=== PATIENT | female | born 1935 | race Two or more races ===

== ENCOUNTER 2017-09-15 11:36 | Emergency (ER) | payer MEDICAID, MEDICARE, OTHER ==
[~2017-09-15] VITALS: Ht 152.4 cm; Wt 40.8 kg
[~2017-09-15 11:36] MED LIST: ALBUTEROL2.5 MG/3 M INH; AMLODIPINE BES2.5 MG ORAL; ATIVAN1 MG ORAL; ATORVASTATIN CA20 MG ORAL; CEFAZOLIN1 GM/50 ML IV; COLACE100 MG ORAL; COUMADIN4 MG ORAL; COUMADIN5 MG ORAL; CRANBERRY450 M4 PO; CYMBALTA20 MG ORAL; DEPAKOTE SPRIN125 MG PO; DEPAKOTE500 MG PO; DIGOXIN125 MCG ORAL; DULCOLAX10 MG RC; DUONEB 0.5-3(2.53 ML HHN; FERROUS SULFAT325 MG ORAL; JUVEN PACKET1 EAC1 PO; LOPRESSOR25 M1 ORAL; METOPROLOL SUCC25 MG ORAL; MILK OF MA400 MG/51 ORAL; MORPHINE 11 MG/1 M3 IVP; MULTIVITAMINS1 EA13 ORAL; MULTIVITAMINS1 EA14 PO; MULTIVITAMINS1 EAC2 ORAL; NAMENDA5 MG ORAL; NORCO 5-325 TA1 EACH ORAL; NOVOLOG100 UNIT/3 SUBQ; OMEPRAZOLE20 M2 ORAL; OMEPRAZOLE20 M3 ORAL; PROTEIN PO; ROCEPHIN 11 GM/50 ML IVPB; TRAMADOL HCL50 MG ORAL; TYLENOL325 MG ORAL; ULTRAM50 MG ORAL; VANCOMYCIN1 GM IV; VANCOMYCIN1 GM/2502 IVPB; VITAMIN C500 M1 ORAL; Warfarin RX monitoring MISC; ZINC SULFATE220 M1 ORAL; ZOFRAN4 M1 ORAL
[2017-09-15 11:50] VITALS: BP 132/92
[2017-09-15] MEDS ORDERED: Sodium Chloride 500ML 500 ML IV ONE (12:02)
[2017-09-15 13:00] VITALS: BP 144/94
[2017-09-15 13:09] LABS: BASOPHILS % (AUTO) 0.8 % (0.0-2.0); EOSINOPHILS % (AUTO) 1.2 % (0.0-3.0); LYMPHOCYTES % (AUTO) 14.3 % (20.0-45.0); MEAN CORPUSCULAR HEMOGLOBIN 25.7 PG (27.0-31.0); MEAN CORPUSCULAR HGB CONC 29.5 G/DL (32.0-36.0); MEAN CORPUSCULAR VOLUME 87 FL (80-99); MEAN PLATELET VOLUME 6.7 FL (6.5-10.1); MONOCYTES % (AUTO) 10.9 % (1.0-10.0); NEUTROPHILS % (AUTO) 72.9 % (45.0-75.0); PLATELET COUNT 169 K/UL (150-450); RED BLOOD COUNT 4.26 M/UL (4.20-5.40); RED CELL DISTRIBUTION WIDTH 17.9 % (11.6-14.8)
[2017-09-15 13:23] LABS: INR 3.2 (0.9-1.1); PROTHROMBIN TIME 34.3 SEC (9.30-11.50)
[2017-09-15 13:40] LABS: ALANINE AMINOTRANSFERASE 11 U/L (12-78); ALBUMIN/GLOBULIN RATIO 0.6 (1.0-2.7); ANION GAP 9 mmol/L (5-15); ASPARTATE AMINO TRANSFERASE 15 U/L (15-37); CALCIUM 8.8 MG/DL (8.5-10.1); CARBON DIOXIDE 27 MMOL/L (21-32); CHLORIDE 106 MMOL/L (98-107); CKMB 1.7 NG/ML (0.0-3.6); CREATININE 0.5 MG/DL (0.55-1.30); POTASSIUM 3.8 MMOL/L (3.5-5.1); SODIUM 142 MMOL/L (136-145); TOTAL PROTEIN 7.4 G/DL (6.4-8.2)
--- NOTE | 2017-09-15 13:54 | Diagnostic Imaging Report ---
Indication: Cough Technique: One view of the chest Comparison: 01/16/2016 Findings: Old healed right humeral fracture deformity is again demonstrated. The bilateral hemidiaphragms are obscured, probably an artifact of projection and positioning but small bilateral pleural effusions cannot be ruled out. The heart is enlarged. The lungs are clear. Aorta is tortuous Impression: Obscured bilateral hemidiaphragms, suspect artifactual but small effusions not excludable Cardiomegaly No acute process otherwise
--- NOTE | 2017-09-15 13:59 | Emergency Room Report ---
History of Present Illness General Chief Complaint: Laceration Source: Medical Record, EMS (RICHMOND CHRISTIANSON M.D.) Present Illness HPI 82-year-old female presents ED for evaluation. Patient brought in because of persistent bleeding from the mouth. Patient comes from [facility]. Patient is on Coumadin. Last INR was greater than 6. Coumadin was withheld for 2 days. Upon arrival patient is altered which is her baseline. No active bleeding at this time. No signs of distress. No other aggravating relieving factors. No other associated symptoms (RICHMOND CHRISTIANSON M.D.) Allergies: Coded Allergies: PENICILLINS (Unverified Allergy, Unknown, 09/15/17) Patient History Past Medical History: DM, HTN, CVA/TIA, seizures, other - dysphagia Past Surgical History: none Pertinent Family History: none Social History: Denies: smoking, alcohol use, drug use Now: No Immunizations: UTD Reviewed Nursing Documentation: PMH: Agreed, PSxH: Agreed (RICHMOND CHRISTIANSON M.D.) Nursing Documentation-PMH Hx Cardiac Problems: Yes - CVA, Hyperlipidemia Hx Hypertension: Yes Hx Diabetes: Yes Hx Cancer: No Hx Gastrointestinal Problems: Yes - Dysphagia Hx Neurological Problems: Yes Hx Cerebrovascular Accident: Yes Hx Dementia: Yes Hx Seizures: Yes Hx Epilepsy: Yes Hx Multiple Sclerosis: Yes (RICHMOND CHRISTIANSON M.D.) Review of Systems All Other Systems: limited (RICHMOND CHRISTIANSON M.D.) Physical Exam Vital Signs Date Time Temp Pulse Resp B/P (MAP) Pulse Ox O2 Delivery O2 Flow Rate FiO2 09/15/17 11:29 110 20 136/80 99 Room Air 09/15/17 11:50 97.3 Sp02 EP Interpretation: reviewed, normal General Appearance: thin, other - encephalopathy Head: normocephalic Eyes: bilateral eye normal inspection, bilateral eye PERRL ENT: hearing grossly normal, no angioedema, normal voice, other - superficial abrasion to roof of mouth. no active bleeding Neck: full range of motion, supple/symm/no masses Respiratory: chest non-tender, lungs clear, normal breath sounds, speaking full sentences Cardiovascular #1: regular rate, rhythm, no edema Gastrointestinal: normal bowel sounds, non tender, soft, non-distended, no guarding, no rebound Rectal: deferred Genitourinary: no CVA tenderness Musculoskeletal: back normal Neurologic: other - encephalopathy Psychiatric: other - encephalopathy Skin: normal inspection Lymphatic: normal inspection (RICHMOND CHRISTIANSON M.D.) Medical Decision Making Diagnostic Impression: Primary Impression: Coagulopathy Additional Impressions: Encephalopathy acute Subacute subdural hematoma ER Course Received signout 82-year-old female coming [facility], COPD,? A. fib on anticoagulation, schizophrenia, dementia, bedbound Initially came in for bleeding mouth No active bleeding emergency room Had a supratherapeutic INR at 6.6 few days ago, Coumadin was held, today's INR is 3.2 EKG noted to have deep T-wave inversions which are new, troponin is negative Patient had head CT performed, subacute subdural left side Keppra, Lamictal, vitamin K 10 mg IV ordered Currently patient is awake, incomprehensible sounds,(reportedly is her baseline) , blood pressure systolic 130 protecting airway, eyes open Patient will be transported to [facility] for higher level of care, signed out patient to Dr Beck who has accepted patient for admission (Nerissa Sanchez M.D.) EKG Diagnostic Results Rate: normal Rhythm: other - afib ST Segments: other - deep twave ivnerions in lateral leads ASA given to the pt in ED: No (RICHMOND CHRISTIANSON M.D.) Rhythm Strip Diag. Results EP Interpretation: yes Rhythm: no PVC's, no ectopy (RICHMOND CHRISTIANSON M.D.) Chest X-Ray Diagnostic Results Chest X-Ray Diagnostic Results : Chest X-Ray Ordered: Yes # of Views/Limited/Complete: 1 View Indication: Shortness of Breath EP Interpretation: Yes Interpretation: no consolidation, no pneumothorax, no acute cardiopulmonary disease, other - bialteral effusion Impression: Other - bilateral effusion Electronically Signed by: Electronically signed by Richmond Christianson MD (RICHMOND CHRISTIANSON M.D.) CT/MRI/US Diagnostic Results CT/MRI/US Diagnostic Results : Imaging Test Ordered: CT Head (RICHMOND CHRISTIANSON M.D.) Last Vital Signs Date Time Temp Pulse Resp B/P (MAP) Pulse Ox O2 Delivery O2 Flow Rate FiO2 09/15/17 11:50 97.3 82 15 132/92 99 Room Air (RICHMOND CHRISTIANSON M.D.) Referrals: RAFY LAND (PCP) RICHMOND CHRISTIANSON M.D. Sep 15, 2017 13:59 Nerissa Sanchez M.D. Sep 15, 2017 14:27
[2017-09-15 14:00] VITALS: BP 144/85
--- NOTE | 2017-09-15 14:21 | Diagnostic Imaging Report ---
Indications: Altered mental Technique: Spiral acquisitions obtained through the brain. Angled axial and coronal 5 x 5 mm slices were reconstructed. Total dose length product 1432 mGycm. CTDI vol(s) 70 mGy. Dose reduction achieved using automated exposure control Comparison: 06/20/2015 Findings: Interim development of a left convexity subdural hematoma, which is isoattenuating with [place] matter. This measures up to 4 mm thick. There is slight mass effect, this is by 6 mm left right midline shift. Note, however, that a component of the midline shift is baseline for this patient, as there were 3 mm of shift noted on the previous CT without a subdural hematoma present. No other evidence of acute intracranial bleed or edema. There is an old right posterior thalamic lacunar infarct again demonstrated. There is a right anterior thalamic lacunar infarct which is old, but not evident on the prior exam. There is also a left thalamic lacunar infarct which was not present previously. There is a right anterior basal ganglia lacunar infarct, equivocally present previously. There is a left posterior temporal deep white matter infarct which is new since prior exam. There is minimal left posterior parasagittal parietal encephalomalacia which was evident previously. There is age-related enlargement of ventricles and extra-axial CSF spaces. There is periventricular deep white matter chronic ischemic change. Intact calvarium. Visualized orbits and sinuses are unremarkable. The mastoids are clear. There is no evidence of significant extracranial scalp soft tissue swelling. Impression: 4 mm thick left convexity subacute subdural hematoma. This results in mild mass effect, as described. No evidence of calvarial fracture Chronic and age-related changes, as described Critical value findings discussed by phone with Dr. Christianson in emergency room at the time of interpretation The CT scanner at [facility] is accredited by the [employer] and the scans are performed using protocols designed to limit radiation exposure to as low as reasonably achievable to attain images of sufficient resolution adequate for diagnostic evaluation.
[2017-09-15] MEDS ORDERED: Phytonadione 10 mg/mL 1ml amp ONE (14:24)
[2017-09-15] MEDS ORDERED: Mannitol 20% IV 500 ML IV ONE (14:30)
[2017-09-15] MEDS ORDERED: levETIRAcetam 1,500 MG in D5W 95 ML IVPB ONE (14:30)
[2017-09-15] MEDS ORDERED: Phytonadione 10 MG in D5W 55 ML IVPB ONE (14:30)
[2017-09-15] MEDS ORDERED: levETIRAcetam 500mg vial IV ONE (14:32)
[2017-09-15 14:41] VITALS: BP 144/85
[2017-09-15 15:11] VITALS: BP 126/78
[2017-09-15 15:30] VITALS: BP 126/78
--- NOTE | 2017-09-15 19:48 | Cardiology Progress Note ---
Assessment/Plan Assessment/Plan The patient is seen and examined, full consult note will be dictated. Objective Last 24 Hour Vital Signs Date Time Temp Pulse Resp B/P (MAP) Pulse Ox O2 Delivery O2 Flow Rate FiO2 09/15/17 15:11 90 16 126/78 99 Room Air 09/15/17 14:41 97 15 144/85 99 Room Air 09/15/17 14:00 101 22 144/85 98 Room Air 09/15/17 13:00 91 20 144/94 99 Room Air 09/15/17 11:50 97.3 82 15 132/92 99 Room Air 09/15/17 11:29 110 20 136/80 99 Room Air Intake and Output 09/15/17 09/16/17 19:00 07:00 Output Total 20 ml Balance -20 ml Output Urine Total 20 ml Laboratory Tests Test 09/15/17 12:35 White Blood Count 6.0 K/UL (4.8-10.8) Red Blood Count 4.26 M/UL (4.20-5.40) Hemoglobin 11.0 G/DL (12.0-16.0) L Hematocrit 37.1 % (37.0-47.0) Mean Corpuscular Volume 87 FL (80-99) Mean Corpuscular Hemoglobin 25.7 PG (27.0-31.0) L Mean Corpuscular Hemoglobin Concent 29.5 G/DL (32.0-36.0) L Red Cell Distribution Width 17.9 % (11.6-14.8) H Platelet Count 169 K/UL (150-450) Mean Platelet Volume 6.7 FL (6.5-10.1) Neutrophils (%) (Auto) 72.9 % (45.0-75.0) Lymphocytes (%) (Auto) 14.3 % (20.0-45.0) L Monocytes (%) (Auto) 10.9 % (1.0-10.0) H Eosinophils (%) (Auto) 1.2 % (0.0-3.0) Basophils (%) (Auto) 0.8 % (0.0-2.0) Prothrombin Time 34.3 SEC (9.30-11.50) H Prothromb Time International Ratio 3.2 (0.9-1.1) H Activated Partial Thromboplast Time 51 SEC (23-33) H Sodium Level 142 MMOL/L (136-145) Potassium Level 3.8 MMOL/L (3.5-5.1) Chloride Level 106 MMOL/L (98-107) Carbon Dioxide Level 27 MMOL/L (21-32) Anion Gap 9 mmol/L (5-15) Blood Urea Nitrogen 12 mg/dL (7-18) Creatinine 0.5 MG/DL (0.55-1.30) L Estimat Glomerular Filtration Rate mL/min (>60) Glucose Level 114 MG/DL (74-106) H Calcium Level 8.8 MG/DL (8.5-10.1) Total Bilirubin 0.5 MG/DL (0.2-1.0) Aspartate Amino Transf (AST/SGOT) 15 U/L (15-37) Alanine Aminotransferase (ALT/SGPT) 11 U/L (12-78) L Alkaline Phosphatase 95 U/L (46-116) Total Creatine Kinase 29 U/L (26-308) Creatine Kinase MB 1.7 NG/ML (0.0-3.6) Creatine Kinase MB Relative Index 5.8 Troponin I 0.033 ng/mL (0.000-0.056) Total Protein 7.4 G/DL (6.4-8.2) Albumin 2.7 G/DL (3.4-5.0) L Globulin 4.7 g/dL Albumin/Globulin Ratio 0.6 (1.0-2.7) L ROLAND FLORENTINO Sep 15, 2017 19:48
--- NOTE | 2017-09-16 16:40 | Cardiology Report ---
APPROVED REPORT EKG Measurement Heart [id number] Atrial fibrillation Minimal voltage criteria for LVH, may be normal variant Possible Anterior infarct, age undetermined Abnormal ECG
== END 2017-09-15 15:30 | disposition short-term general hospital (02) ==
LOC: EDBD 11:36 → EMR 12:08
DX: R79.1 Abnormal coagulation profile (principal); G93.40 Encephalopathy, unspecified; I62.00 Nontraumatic subdural hemorrhage, unspecified; I51.7 Cardiomegaly; I10 Essential (primary) hypertension; E11.9 Type 2 diabetes mellitus without complications; Z88.0 Allergy status to penicillin; E78.5 Hyperlipidemia, unspecified; F03.90 Unspecified dementia, unspecified severity, without behavioral disturbance, psychotic disturbance, mood disturbance, and anxiety
CPT/HCPCS: 36415; 70450; 71010; 80053; 82550; 82553; 84484; 85025; 85610; 85730; 86850; 86900; 86901; 93005; 96361; 96365; 96366; 96375; 99284; J1953; J2150; J3430; J7040